=== PATIENT | male | born 2000 | race Caucasian/White ===

== ENCOUNTER 2020-05-24 13:33 | Emergency (ER) | payer BC, MEDICAID, OTHER, SELFPAY ==
[~2020-05-24] VITALS: Ht 188 cm; Wt 69.8 kg
--- NOTE | 2020-05-24 14:24 | REP ---
INDICATION: fall injury COMPARISON: None. TECHNIQUE: AP, lateral, bilateral oblique views left hand. FINDINGS: Examination is somewhat limited by positioning. No obvious acute fracture or dislocation. Soft tissue swelling appreciated. No subcutaneous emphysema or foreign body. IMPRESSION: No subcutaneous emphysema or foreign body. No acute fracture or dislocation. <Electronically signed by Ubaldo Oneill > 05/24/20 [id number]
[2020-05-24] MEDS ORDERED: BOOSTRIX/ADACEL VACCINE (DIPHTH/PERTUSS/ACELL/TETANUS) 0.5ML SYR IM ONE (15:00)
[2020-05-24] MEDS ORDERED: CEPH500T PO (15:08)
[2020-05-24 15:20] VITALS: BP 128/84
== END 2020-05-24 15:36 | disposition home or self-care (01) ==
LOC: M ED 13:33
DX: S61.432A Puncture wound without foreign body of left hand, initial encounter (principal); W45.0XXA Nail entering through skin, initial encounter; Y92.9 Unspecified place or not applicable; Y93.H3 Activity, building and construction; Y99.0 Civilian activity done for income or pay; F17.200 Nicotine dependence, unspecified, uncomplicated